=== PATIENT | male | born 2000 | race American Indian/Alaskan Native ===

== ENCOUNTER 2021-09-01 18:16 | Emergency (ER) | payer SELFPAY ==
[2021-09-01] MEDS ORDERED: ACETAMINOPHEN 500 MG TAB PO ONE (23:09)
[2021-09-01] MEDS ORDERED: SODIUM CHLORIDE 0.9% 1000 ML 1,000 ML IV ONE (23:09)
[2021-09-01] MEDS ORDERED: ONDANSETRON 4 MG/2 ML INJ IV ONE (23:09)
[2021-09-01] MEDS ORDERED: KETOROLAC 30 MG/1 ML INJ IV ONE (23:09)
--- NOTE | 2021-09-01 23:58 | XRay Report ---
CHEST 1 VIEW INDICATION / CLINICAL INFORMATION: cough, fever. COMPARISON: None available. FINDINGS: SUPPORT DEVICES: None. HEART / MEDIASTINUM: No significant abnormality. LUNGS / PLEURA: No significant pulmonary or pleural abnormality. No pneumothorax. ADDITIONAL FINDINGS: No significant additional findings. IMPRESSION: 1. No acute findings. Signer Name: Kayla Colón MD Signed: 09/01/2021 11:53 PM Workstation Name: [id number]
[2021-09-02 00:13] LABS: Alanine Aminotransferase 10 units/L (7-56); Albumin 4.7 g/dL (3.9-5); BUN/Creatinine Ratio 11; Blood Urea Nitrogen 9 mg/dL (9-20); Calcium 9.1 mg/dL (8.4-10.2); Hemolysis Index 5
[2021-09-02 00:36] LABS: Hematocrit 41.2 % (35.5-45.6); Hemoglobin 12.8 gm/dl (11.8-15.2); Mean Corpuscular HGB Conc 31 % (32-34); Mean Corpuscular Volume 85 fl (84-94); Platelet Count 236 K/mm3 (140-440); Red Blood Count 4.84 M/mm3 (3.65-5.03); Red Cell Distribution Width 13.6 % (13.2-15.2)
[2021-09-02 01:05] VITALS: BP 116/79
[2021-09-02 01:29] LABS: Bilirubin,Urine NEG (Negative); Blood,Urine NEG (Negative); Color,Urine Yellow (Yellow); Mucus,Urine 1+ /HPF; Protein,Urine <15 mg/dL mg/dL (Negative); Urobilinogen,Urine < 2.0 mg/dL (<2.0)
[2021-09-02 01:47] LABS: Band Neutrophils # (Manual) 0.2 K/mm3; Platelet Estimate Consistent w Auto; RBC Morphology Normal; Total Cells Counted 100
--- NOTE | 2021-09-02 03:28 | Emergency Department Report ---
ED N/V/D HPI - General Chief complaint: Chest Pain Stated complaint: CHEST PAINS Source: patient Mode of arrival: Ambulatory Limitations: No Limitations - History of Present Illness Initial comments: Per family, patient is a 20-year-old deaf -[place] male who has been hav ing persistent diffuse severe body aches and pains, intermittent fever with chills, nausea and vomiting, persistent dry cough, nasal and sinus congestion and diarrhea for the last 12 hours. Family stated that the patient has not been able to eat or drink anything because of worsening pain and symptoms. Family stated that no one is at home has had similar symptoms but that the patient is employed and that the symptoms started when he was at work. Family stated that the patient has not had any abdominal pain, dizziness, syncope, chest pain, shortness of breath, dysuria, hematuria, testicular pain, palpitations, sore throat or hemoptysis. MD complaint: nausea, vomiting, diarrhea, other (Diffuse body aches and pains; nasal and sinus congestion; dry cough) -: Sudden, hour(s) (12) Description of Vomiting: food contents, watery, bilious Associated Abdominal Pain: No Location: diffuse Radiation: none Severity: severe Pain Scale: 7 Quality: aching, sharp Consistency: constant Improves with: none Worsens with: eating, vomiting Context: possible food poisoning Associated Symptoms: denies other symptoms, myalgias, cough, fever/chills, headaches, loss of appetite, malaise, nausea/vomiting, other (Low back pain). denies: chest pain, diaphoresis, rash, dysuria, shortness of breath, syncope, weakness - Related Data Previous Rx's Medication Instructions Recorded Last Taken Type Acetaminophen [Tylenol] 500 mg PO Q6HR PRN #30 tablet 09/02/21 Unknown Rx Benzonatate [Tessalon Perles] 100 mg PO Q8HR #30 capsule 09/02/21 Unknown Rx Cetirizine HCl [Zyrtec 10mg tab] 10 mg PO DAILY #30 tablet 09/02/21 Unknown Rx Ibuprofen [Motrin] 600 mg PO Q8H PRN #30 tablet 09/02/21 Unknown Rx Ondansetron [Zofran Odt] 4 mg PO Q6HR PRN #20 tab.rapdis 09/02/21 Unknown Rx Allergies Allergy/AdvReac Type Severity Reaction Status Date / Time No Known Allergies Allergy Verified 09/02/21 00:03 ED Review of Systems ROS: Stated complaint: CHEST PAINS Other details as noted in HPI Constitutional: chills, fever, malaise, weakness Eyes: denies: eye pain, eye discharge, vision change ENT: congestion. denies: ear pain, throat pain Respiratory: cough. denies: shortness of breath, wheezing Cardiovascular: denies: chest pain, palpitations Endocrine: no symptoms reported Gastrointestinal: nausea, vomiting. denies: abdominal pain, diarrhea Genitourinary: denies: urgency, dysuria Musculoskeletal: back pain, arthralgia, myalgia. denies: joint swelling Skin: denies: rash, lesions Neurological: headache. denies: weakness, paresthesias Psychiatric: denies: anxiety, depression Hematological/Lymphatic: denies: easy bleeding, easy bruising ED Past Medical Hx - Surgical History Past Surgical History?: No - Medications Home Medications: Home Medications Medication Instructions Recorded Confirmed Last Taken Type Acetaminophen [Tylenol] 500 mg PO Q6HR PRN #30 tablet 09/02/21 Unknown Rx Benzonatate [Tessalon Perles] 100 mg PO Q8HR #30 capsule 09/02/21 Unknown Rx Cetirizine HCl [Zyrtec 10mg tab] 10 mg PO DAILY #30 tablet 09/02/21 Unknown Rx Ibuprofen [Motrin] 600 mg PO Q8H PRN #30 tablet 09/02/21 Unknown Rx Ondansetron [Zofran Odt] 4 mg PO Q6HR PRN #20 tab.rapdis 09/02/21 Unknown Rx ED Physical Exam - General Limitations: No Limitations General appearance: alert, in no apparent distress - Head Head exam: Present: atraumatic, normocephalic, normal inspection - Eye Eye exam: Present: normal appearance, PERRL, EOMI Pupils: Present: normal accommodation - ENT ENT exam: Present: normal orophraynx, mucous membranes moist, TM's normal bilaterally, normal external ear exam, other (Grossly congested nasal passage) - Neck Neck exam: Present: normal inspection, full ROM. Absent: tenderness - Respiratory Respiratory exam: Present: normal lung sounds bilaterally. Absent: respiratory distress, wheezes, rales, stridor, chest wall tenderness, decreased breath sounds - Cardiovascular Cardiovascular Exam: Present: normal rhythm, tachycardia, normal heart sounds. Absent: systolic murmur, diastolic murmur, rubs, gallop - GI/Abdominal GI/Abdominal exam: Present: soft, normal bowel sounds. Absent: tenderness, guarding, rebound, hyperactive bowel sounds, hypoactive bowel sounds, organomegaly - Extremities Exam Extremities exam: Present: normal inspection, full ROM, normal capillary refill - Back Exam Back exam: Present: normal inspection, full ROM. Absent: tenderness, CVA tenderness (R), CVA tenderness (L), muscle spasm, paraspinal tenderness, vertebral tenderness - Neurological Exam Neurological exam: Present: alert, oriented X3, CN II-XII intact, normal gait, reflexes normal - Psychiatric Psychiatric exam: Present: normal affect, normal mood, anxious - Skin Skin exam: Present: warm, dry, intact, normal color. Absent: rash ED Course Vital Signs 09/01/21 09/02/21 09/02/21 22:47 00:57 01:05 Temperature 101.9 F H Pulse Rate 126 H Respiratory 18 15 15 Rate Blood Pressure 116/79 O2 Sat by Pulse 98 95 Oximetry 09/02/21 01:27 Temperature Pulse Rate Respiratory 15 Rate Blood Pressure O2 Sat by Pulse Oximetry ED Medical Decision Making - Lab Data Result diagrams: 09/01/21 23:32 09/01/21 23:32 - Radiology Data Radiology results: report reviewed, image reviewed [address] [address] XRay Report Signed Patient: LADAN FUENTES MR#: [id number] : 2000 Acct:[id number] Age/Sex: 20 / M ADM Date: 09/01/21 Loc: ED Attending Dr: Ordering Physician: SHAYNA GONZALEZ Date of Service: 09/01/21 Procedure(s): XR chest 1V ap Accession Number(s): [id number] cc: SHAYNA GONZALEZ Fluoro Time In Minutes: CHEST 1 VIEW INDICATION / CLINICAL INFORMATION: cough, fever. COMPARISON: None available. FINDINGS: SUPPORT DEVICES: None. HEART / MEDIASTINUM: No significant abnormality. LUNGS / PLEURA: No significant pulmonary or pleural abnormality. No pneumothorax. ADDITIONAL FINDINGS: No significant additional findings. IMPRESSION: 1. No acute findings. 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 Family stated that the patient has not been able to eat or drink anything because of worsening pain and symptoms. Family stated that no one is a t home has had similar symptoms but that the patient is employed and that the symptoms started when he was at work. In the ED, patient is alert and oriented x3 and is not in any distress however patient is tachycardic and febrile in triage. Lab test results were reviewed and are all nonactionable including rapid influenza test results. Chest x-ray showed no acute cardiopulmonary abnormalities or pneumonitis. Patient was treated in the ED for fever and pain, also given antiemetics, and normal saline 1 L IV bolus x1. On reevaluation, patient vital signs improved significantly, fever resolved and tachycardia also resolved. Patient felt better, pain is well controlled and patient passed oral fluid challenge in the ED. Patient discharged home on medications and family advised of the patient follow-up with primary care physician in 7 to 10 days for reevaluation. Family was also advised to have the patient get tested for COVID- 19 viral infection in any of the outpatient facilities. The family was also advised of the patient return to the ED immediately if symptoms get worse - Differential Diagnosis URI; gastroenteritis; pneumonia; bronchitis; influenza; UTI Critical care attestation.: If time is entered above; I have spent that time in minutes in the direct care of this critically ill patient, excluding procedure time. ED Disposition Clinical Impression: Acute upper respiratory infection, Viral gastroenteritis, Acute viral syndrome, Nausea and vomiting in adult patient Acute bronchitis Qualifiers: Bronchitis organism: other organism Qualified Code(s): J20.8 - Acute bronchitis due to other specified organisms Disposition: HOME / SELF CARE / HOMELESS Is pt being admited?: No Does the pt Need Aspirin: No Condition: Stable Instructions: Acute Bronchitis (ED), Upper Respiratory Infection, Adult, [id number], Viral Gastroenteritis, Adult, [id number], Cough, Adult, Ea sy-to-Read, Acute Bronchitis, Adult, [id number], Nausea and Vomiting, Adult, [id number] Additional Instructions: All lab test results were reviewed and are all nonactionable including rapid influenza test results. Chest x-ray showed no acute cardiopulmonary abnormaliti es or pneumonitis. Your symptoms are mainly viral in etiology. Therefore take medications with food, drink plenty of fluids and follow-up with your primary care physician in 7 to 10 days for reevaluation or return to the ED immediately if symptoms get worse. Ensure that you get tested for COVID-19 viral infection in any of the outpatient facilities, and if positive, self quarantine at home for 5 days. Prescriptions: Acetaminophen [Tylenol] 500 mg PO Q6HR PRN #30 tablet PRN Reason: pain or fever Ibuprofen [Motrin] 600 mg PO Q8H PRN #30 tablet PRN Reason: Pain Benzonatate [Tessalon Perles] 100 mg PO Q8HR #30 capsule Ondansetron [Zofran Odt] 4 mg PO Q6HR PRN #20 tab.rapdis PRN Reason: Nausea Cetirizine HCl [Zyrtec 10mg tab] 10 mg PO DAILY #30 tablet Referrals: [facility] [Provider Group] - 7-10 days Forms: Work/School Release Form(ED) Time of Disposition: 03:31 Print Language: BELARUSIAN
== END 2021-09-02 04:18 | disposition home or self-care (01) ==
LOC: ED 18:16
DX: J06.9 Acute upper respiratory infection, unspecified (principal); A08.4 Viral intestinal infection, unspecified; B34.9 Viral infection, unspecified; J20.9 Acute bronchitis, unspecified
CPT/HCPCS: 36415; 71045; 80053; 81001; 85007; 85025; 87400; 96361; 96374; 96375; 99284; J1885; J2405; J7030; Q0162